=== PATIENT | male | born 1965 ===

== ENCOUNTER → 2017-03-11 | Outpatient (CLI) | payer MEDICAID | LOC: WCC 08:53 | DX: L98.499 Non-pressure chronic ulcer of skin of other sites with unspecified severity (principal); Q05.9 Spina bifida, unspecified; Z99.3 Dependence on wheelchair; Z89.611 Acquired absence of right leg above knee; Z89.612 Acquired absence of left leg above knee; Z91.19 Patient's noncompliance with other medical treatment and regimen | CPT/HCPCS: 17716; A6212; G0463 ==

== ENCOUNTER → 2017-03-12 | Outpatient (CLI) | payer MEDICAID ==
[2017-03-12 17:41] LABS: BASO # 0.1 (0.0-0.2); BASO % 0.5 % (0.0-2.0); EOS # 0.3 (0.0-0.7); EOS % 2.8 % (0-4.0); GRAN # 8.6 (1.4-6.5); HEMOGLOBIN 12.4 g/dl (13.5-18.0); LYMPH # 1.1 (1.2-3.4); LYMPH % 9.7 % (20.0-51.0); MEAN CELL VOLUME 89 fl (80.0-100.0); MEAN CORPUSCULAR HEMOGLOBIN 27 pg (27.0-31.0); MEAN CORPUSCULAR HGB CONC 30 g/dl (33.0-37.0); MEAN PLATELET VOLUME 10.9 fl (7.4-10.4); MONO % 8.9 % (1.7-9.3); PLATELET COUNT 268 K/mm3 (130-400); RED BLOOD COUNT 4.62 M/mm3 (4.20-5.60); REDCELL DISTRIBUTION WIDTH-CV 16.3 % (11.5-14.5); WHITE BLOOD COUNT 11.2 K/mm3 (4.8-10.8)
[2017-03-12 17:42] LABS: CREATININE, serum 1.47 mg/dL (0.66-1.25); POTASSIUM 3.6 mmol/L (3.4-5.0)
== END ==
LOC: COL.LAB 16:05
PROVIDERS: Family Medicine
DX: E87.6 Hypokalemia (principal); Q05.9 Spina bifida, unspecified; D64.9 Anemia, unspecified; L89.159 Pressure ulcer of sacral region, unspecified stage

== ENCOUNTER → 2017-03-19 | Outpatient (CLI) | payer MEDICAID | LOC: WCC 03-17 08:22 | DX: L89.103 Pressure ulcer of unspecified part of back, stage 3 (principal); L98.499 Non-pressure chronic ulcer of skin of other sites with unspecified severity; Z93.3 Colostomy status; Z93.6 Other artificial openings of urinary tract status; Q05.9 Spina bifida, unspecified | CPT/HCPCS: 17716; A6212; G0463 ==

== ENCOUNTER → 2017-04-02 | Outpatient (CLI) | payer MEDICAID | LOC: WCC 08:45 | DX: L89.159 Pressure ulcer of sacral region, unspecified stage (principal); L89.229 Pressure ulcer of left hip, unspecified stage; Q05.9 Spina bifida, unspecified; Z93.3 Colostomy status; Z93.6 Other artificial openings of urinary tract status | CPT/HCPCS: G0463 ==

== ENCOUNTER → 2017-04-16 | Outpatient (CLI) | payer MEDICAID | LOC: WCC 09:43 | DX: L89.323 Pressure ulcer of left buttock, stage 3 (principal); Z93.6 Other artificial openings of urinary tract status; Q05.9 Spina bifida, unspecified | CPT/HCPCS: 17717; A6212; G0463 ==

== ENCOUNTER → 2017-05-16 | Outpatient (CLI) | payer MEDICARE, MEDICAID ==
[2017-05-16 13:46] LABS: COLLECTION METHOD CATHETER
[2017-05-16 14:03] LABS: BUDDING YEAST Present /hpf; MUCOUS Present /lpf; PH 9 (5-8); SQUAMOUS EPITHELIAL 0-2 /hpf; URINE APPEARANCE Cloudy; URINE BACTERIA Rare /hpf; URINE BILIRUBIN Negative (NEGATIVE); URINE BLOOD 1+ (NEGATIVE); URINE COLOR Yellow; URINE GLUCOSE Negative (NEGATIVE); URINE KETONE Negative (NEGATIVE); URINE LEUKOCYTE ESTERASE 3+ (NEGATIVE); URINE PROTEIN(semi-quant) 2+ (NEGATIVE); URINE TRIPLE PHOSPHATE CRYSTAL Present /hpf; URINE UROBILINOGEN Negative (NEGATIVE); URINE WBC 20-50 /hpf
== END ==
LOC: ZCOL.LAB 13:37
PROVIDERS: Family Medicine
DX: R82.90 Unspecified abnormal findings in urine (principal)

== ENCOUNTER → 2017-06-17 | Outpatient (CLI) | payer MEDICARE, MEDICAID ==
[2017-06-17 16:11] LABS: BASO # 0.1 (0.0-0.2); BASO % 0.7 % (0.0-2.0); EOS # 0.8 (0.0-0.7); GRAN # 5.9 (1.4-6.5); GRAN % 65.3 % (42.2-75.2); HEMATOCRIT 46.8 % (42.0-52.0); HEMOGLOBIN 13.9 g/dl (13.5-18.0); LYMPH # 1.1 (1.2-3.4); LYMPH % 11.9 % (20.0-51.0); MEAN CELL VOLUME 87 fl (80.0-100.0); MEAN CORPUSCULAR HEMOGLOBIN 26 pg (27.0-31.0); MEAN CORPUSCULAR HGB CONC 30 g/dl (33.0-37.0); MEAN PLATELET VOLUME 11.4 fl (7.4-10.4); MONO % 11.3 % (1.7-9.3); PLATELET COUNT 251 K/mm3 (130-400); RED BLOOD COUNT 5.41 M/mm3 (4.20-5.60)
[2017-06-17 16:21] LABS: ADJUSTED CALCIUM 9.3 mg/dL (8.4-10.2); ALBUMIN 3.7 gm/dL (3.5-5.0); BILIRUBIN,TOTAL 0.5 mg/dL (0.0-1.0); CALCIUM 9.1 mg/dL (8.4-10.2); CHOLESTEROL RISK RATIO 5.3; CREATININE, serum 1.55 mg/dL (0.66-1.25); POTASSIUM 3.6 mmol/L (3.4-5.0); TOTAL PROTEIN 8.5 gm/dL (6.4-8.2)
== END ==
LOC: COL.LAB 11:53
PROVIDERS: Nurse Practitioner
DX: Z13.220 Encounter for screening for lipoid disorders (principal); D64.9 Anemia, unspecified; E87.6 Hypokalemia

== ENCOUNTER → 2017-09-09 | Outpatient (CLI) | payer MEDICARE, MEDICAID ==
[2017-09-09 14:21] LABS: HEMOGLOBIN 15.1 g/dl (13.5-18.0); MEAN CELL VOLUME 88 fl (80.0-100.0); MEAN CORPUSCULAR HEMOGLOBIN 27 pg (27.0-31.0); MEAN CORPUSCULAR HGB CONC 31 g/dl (33.0-37.0); MEAN PLATELET VOLUME 11.1 fl (7.4-10.4); PLATELET COUNT 240 K/mm3 (130-400); REDCELL DISTRIBUTION WIDTH-CV 18.8 % (11.5-14.5)
[2017-09-09 14:30] LABS: ALBUMIN 3.8 gm/dL (3.5-5.0); BILIRUBIN,TOTAL 0.4 mg/dL (0.0-1.0); CALCIUM 9.1 mg/dL (8.4-10.2); CREATININE, serum 2.16 mg/dL (0.66-1.25); TOTAL PROTEIN 8.4 gm/dL (6.4-8.2)
[2017-09-09 15:15] LABS: ANISOCYTOSIS 1+; BAND 5 % (0-10); BASOPHIL 2 % (0-2); EOSINOPHIL 10 % (0-4); LYMPHOCYTE 16 % (20.0-51.0); MYELOCYTE 1 % (0-0); NEUTROPHILS 62 % (42.0-75.2); PLATELET ESTIMATE NORMAL (NORMAL); TSH w REFLEX 2.76 uIU/mL (0.465-4.680)
[2017-09-09 15:16] LABS: POTASSIUM 3.9 mmol/L (3.4-5.0)
[2017-09-09 15:17] LABS: STOMATOCYTE 1+; TOXIC GRANULATION PRESENT
== END ==
LOC: COL.LAB 11:38
PROVIDERS: Family Medicine
DX: Z13.1 Encounter for screening for diabetes mellitus (principal); N17.9 Acute kidney failure, unspecified; R00.0 Tachycardia, unspecified

== ENCOUNTER → 2018-03-04 | Outpatient (CLI) | payer MEDICARE, MEDICAID | LOC: ZCOL.LAB 15:46 | DX: L89.90 Pressure ulcer of unspecified site, unspecified stage (principal) ==